=== PATIENT | female | born 1965 | race African-American/Black ===

== ENCOUNTER → 2023-03-05 | Day surgery (SDC) | payer MEDICARE ==
[~2023-03-05] MED LIST: Midazolam HCl 2 mg/2 ml Vial ONE; Ondansetron PF 4 MG/2 ML Vial ONE; Sodium Bicarbonate 2.5 MEQ/5 ML VIAL ONE; fentaNYL 50 mcg/mL 1 mL Vial ONE
[2023-03-05 10:11] VITALS: BP 148/100; TEMP 97.7
== END ==
LOC: CT 08:35
PROVIDERS: ATTEND Internal Medicine Hematology & Oncology
DX: D69.3 Immune thrombocytopenic purpura (principal); E11.9 Type 2 diabetes mellitus without complications; M06.9 Rheumatoid arthritis, unspecified; I10 Essential (primary) hypertension; Z88.2 Allergy status to sulfonamides
CPT/HCPCS: 20225; 77012; J3010; 88184; 88237; 88264; 88280; J2250; J2405

== ENCOUNTER 2023-03-17 09:06 | Day surgery (SDC) | payer MEDICARE ==
[2023-03-17] MEDS ORDERED: diphenhydrAMINE 25 MG CAP PO SCH (09:45)
[2023-03-17] MEDS ORDERED: Acetaminophen 500 MG TAB PO SCH (09:45)
[2023-03-17] MEDS ORDERED: diphenhydrAMINE 25 MG CAP ONE (10:04)
[2023-03-17] MEDS ORDERED: Acetaminophen 500 MG TAB ONE (10:04)
[2023-03-17 15:41] VITALS: BP 126/76; TEMP 98.1
== END 2023-03-17 16:00 | disposition home or self-care (01) ==
LOC: ONC/OP 09:06
PROVIDERS: ATTEND Internal Medicine Hematology & Oncology
DX: D69.3 Immune thrombocytopenic purpura (principal); Z88.2 Allergy status to sulfonamides
CPT/HCPCS: 36430; 86850; 86900; 86901; 86920; P9016

== ENCOUNTER 2023-04-01 09:06 | Day surgery (SDC) | payer MEDICARE ==
[2023-04-01] MEDS ORDERED: Acetaminophen 500 MG TAB PO SCH (09:15)
[2023-04-01] MEDS ORDERED: diphenhydrAMINE 25 MG CAP PO SCH (09:15)
[2023-04-01] MEDS ORDERED: Acetaminophen 500 MG TAB ONE (09:52)
[2023-04-01] MEDS ORDERED: diphenhydrAMINE 25 MG CAP ONE (09:52)
[2023-04-01 13:30] VITALS: BP 131/61; TEMP 97.5
== END 2023-04-01 15:34 | disposition home or self-care (01) ==
LOC: ONC/OP 09:06
PROVIDERS: ATTEND Internal Medicine Hematology & Oncology
DX: D64.9 Anemia, unspecified (principal); D69.3 Immune thrombocytopenic purpura; Z88.2 Allergy status to sulfonamides
CPT/HCPCS: 36430; 86850; 86900; 86901; 86920; P9016

== ENCOUNTER 2023-04-21 09:09 | Day surgery (SDC) | payer MEDICARE ==
[2023-04-21] MEDS ORDERED: Acetaminophen 500 MG TAB PO SCH (09:45)
[2023-04-21] MEDS ORDERED: diphenhydrAMINE 25 MG CAP PO SCH (09:45)
[2023-04-21] MEDS ORDERED: Acetaminophen 500 MG TAB ONE (10:19)
[2023-04-21] MEDS ORDERED: FLU VACC QS2023-24(6MOS UP)/PF 60 MCG/0.5 ML SYRINGE IM ONE (13:30)
[2023-04-21 15:31] VITALS: BP 132/72; TEMP 98.1
== END 2023-04-21 15:34 | disposition home or self-care (01) ==
LOC: ONC/OP 09:09
PROVIDERS: ATTEND Internal Medicine Hematology & Oncology
DX: D64.9 Anemia, unspecified (principal); D69.6 Thrombocytopenia, unspecified; Z88.2 Allergy status to sulfonamides
CPT/HCPCS: 36430; 86850; 86900; 86901; 86920; P9016

== ENCOUNTER 2023-05-03 07:48 | Outpatient (CLI) | payer MEDICARE | END 2023-05-03 07:49 | disposition home or self-care (01) | LOC: BICCT 07:48 | PROVIDERS: ATTEND Surgery | DX: D69.3 Immune thrombocytopenic purpura (principal); N28.89 Other specified disorders of kidney and ureter; N20.0 Calculus of kidney; K57.30 Diverticulosis of large intestine without perforation or abscess without bleeding; Z90.49 Acquired absence of other specified parts of digestive tract | CPT/HCPCS: 74177; 82565 ==

== ENCOUNTER 2023-05-19 09:05 | Day surgery (SDC) | payer MEDICARE ==
[2023-05-19] MEDS ORDERED: diphenhydrAMINE 25 MG CAP ONE (10:12)
[2023-05-19] MEDS ORDERED: Acetaminophen 500 MG TAB ONE (10:12)
[2023-05-19] MEDS ORDERED: Acetaminophen 500 MG TAB PO SCH (10:30)
[2023-05-19] MEDS ORDERED: diphenhydrAMINE 25 MG CAP PO SCH (10:30)
[2023-05-19 13:07] VITALS: TEMP 97.9
[2023-05-19 15:26] VITALS: BP 136/71
== END 2023-05-19 15:27 | disposition home or self-care (01) ==
LOC: ONC/OP 09:05
PROVIDERS: ATTEND Internal Medicine Hematology & Oncology
DX: D69.3 Immune thrombocytopenic purpura (principal); Z88.2 Allergy status to sulfonamides
CPT/HCPCS: 36430; 86850; 86900; 86901; 86920; P9016

== ENCOUNTER 2023-06-21 09:09 | Outpatient (CLI) | payer MEDICARE ==
[2023-06-21 11:58] LABS: Anion Gap 13 mmol/L (10-20); BUN (Urea Nitrogen) 21 mg/dL (9.8-20.1); Calc. Creatinine Clearance 0 mL/min (70-130); Carbon Dioxide 26 mmol/L (22-29); Chloride 106 mmol/L (98-107); Estimated GFR 60; Glucose 138 mg/dL (70-105); Potassium 3.7 mmol/L (3.5-5.1); Sodium 141 mmol/L (136-145)
[2023-06-21 12:05] LABS: #Eosinphils 0.2 10x3/uL (0.0-0.5); #Monocytes 0.8 10x3/uL (0.0-1.1); #Neutrophils 3.2 10x3/uL (1.5-8.4); %Basophils 0.7 % (0.0-2.0); %Eosinophils 2.7 % (0.0-6.0); %Lymphocytes 23.1 % (18.0-47.0); %Neutrophils 58.6 % (40.0-75.0); Hematocrit 28.2 % (34.9-44.5); Hemoglobin 8.4 g/dL (12.0-15.5); Mean Corpuscular HGB CONC 29.8 g/dL (32.0-36.0); Mean Corpuscular Hemoglobin 27.5 pg (27.0-33.0); Mean Corpuscular Volume 92.5 fl (81.6-98.3); Platelet Count 1 10x3/uL (150-450); RBC Distribution Width 14.6 % (11.5-14.5); Red Blood Cell (RBC) Count 3.05 10x6/uL (3.90-5.03); White Blood Cell (WBC) Count 5.5 10x3/uL (3.5-10.5)
== END 2023-06-21 09:10 | disposition home or self-care (01) ==
LOC: LABBT 09:09
PROVIDERS: ATTEND Surgery
DX: Z01.818 Encounter for other preprocedural examination (principal); D69.3 Immune thrombocytopenic purpura
CPT/HCPCS: 80048; 85025; 93005; 93010

== ENCOUNTER 2023-07-01 06:55 | Inpatient (IN) | payer MEDICARE ==
[2023-06-21 09:38] VITALS: BMI 34.9
[2023-07-01] MEDS ORDERED: Lidocaine 1% MPF 2 ML VIAL ONE (08:44)
[2023-07-01] MEDS ORDERED: Famotidine/PF 20 mg/2ml Vial ONE (08:46)
[2023-07-01] MEDS ORDERED: Ondansetron PF 4 MG/2 ML Vial ONE ×2 (08:46→13:13)
[2023-07-01] MEDS ORDERED: fentaNYL 50 mcg/mL 1 mL Vial ONE ×2 (10:19→14:41)
[2023-07-01] MEDS ORDERED: PROPOFOL 20 ML ONE (10:42)
[2023-07-01] MEDS ORDERED: Lidocaine 1% PF 5 ML VIAL ONE (10:42)
[2023-07-01] MEDS ORDERED: fentaNYL PF 100 MCG/2 ML SYRINGE ONE (10:42)
[2023-07-01] MEDS ORDERED: Rocuronium Bromide 10 MG/ML (10ML VIAL) ONE ×2 (10:42→12:39)
[2023-07-01] MEDS ORDERED: MINERAL OIL/WHITE PETROLATUM 3.5 GM TUBE ONE (10:44)
[2023-07-01] MEDS ORDERED: Lidocaine 2% 6 ML (Jelly) SYR ONE (10:44)
[2023-07-01] MEDS ORDERED: Midazolam HCl 2 mg/2 ml Vial ONE (10:51)
[2023-07-01] MEDS ORDERED: Bupivacaine 0.25% HCL 30 ML VIAL ONE (10:56)
[2023-07-01] MEDS ORDERED: EPINEPHrine 1 MG/ML VIAL ONE (10:56)
[2023-07-01] MEDS ORDERED: Sodium Chloride 0.9% 100 ML ONE (11:02)
[2023-07-01] MEDS ORDERED: CEFAZOLIN 2 GM VIAL ONE (11:02)
[2023-07-01] MEDS ORDERED: PHENYLEPHRINE-NS 100 MCG/ML 10 ML SYRINGE ONE (12:39)
[2023-07-01] MEDS ORDERED: Calcium Chloride 1 GM/10 ML Abboject SYRINGE ONE (13:27)
[2023-07-01] MEDS ORDERED: SUGAMMADEX SODIUM 200 MG/2 ML VIAL ONE (13:29)
[2023-07-01 13:36] LABS: #Eosinphils 0.1 thou/uL (0.0-0.7); #Monocytes 1.3 thou/uL (0.11-0.59); #Neutrophils 12.3 thou/uL (1.40-6.50); %Basophils 0.3 % (0.0-1.0); %Eosinophils 0.8 % (0.0-10.0); %Lymphocytes 12.8 % (21.0-51.0); %Monocytes 8.4 % (0.0-10.0); %Neutrophils 76.9 % (42.0-75.0); Hematocrit 22.5 % (36.0-47.0); Hemoglobin 6.7 g/dL (12.0-16.0); Mean Corpuscular HGB CONC 29.8 g/dL (32.0-36.0); Mean Corpuscular Hemoglobin 28.3 pg (27.0-31.0); Mean Corpuscular Volume 94.9 fl (78.0-98.0); Mean Platelet Volume 9.7 fL (7.4-10.4); RBC Distribution Width 15.3 % (11.5-14.5); Red Blood Cell (RBC) Count 2.37 mill/uL (4.20-5.40)
[2023-07-01] MEDS ORDERED: Labetalol HCl 100 MG/20 ML VIAL ONE (13:36)
[2023-07-01 13:39] LABS: Platelet Count 65 10x3/uL (130-400)
[2023-07-01] MEDS ORDERED: Promethazine HCl 25 MG/ML VIAL IM PRN ×2 (14:04→14:05)
[2023-07-01] MEDS ORDERED: Ondansetron HCl/PF 4 MG/2 ML Vial IVP PRN (14:04)
[2023-07-01] MEDS ORDERED: Glucagon 1 MG/ML KIT IM PRN ×2 (14:05)
[2023-07-01] MEDS ORDERED: Dextrose 5% in Water 1,000 ML IV PRN (14:05)
[2023-07-01] MEDS ORDERED: Insulin Regular 300 UNITS/3 ML VIAL SC PRN (14:05)
[2023-07-01] MEDS ORDERED: Ipratropium/Albuterol 3 ML NEB NEB PRN (14:05)
[2023-07-01] MEDS ORDERED: HYDROcodone/Acetaminophen 10/325 mg Tablet PO PRN (14:05)
[2023-07-01] MEDS ORDERED: hydrALAZINE 20 MG/ML VIAL SLOW IVP PRN (14:05)
[2023-07-01] MEDS ORDERED: Dextrose 50% Abboject 50 ML SYRINGE SLOW IVP PRN ×2 (14:05)
[2023-07-01] MEDS ORDERED: Ondansetron PF 4 MG/2 ML Vial IVP PRN (14:05)
[2023-07-01] MEDS: Morphine 4 MG/ML VIAL SLOW IVP PRN ×2 (16:33→19:43)
[2023-07-01] MEDS: Sodium Chloride 0.9% 1,000 ML IV SCH (16:35)
[2023-07-01] MEDS: HYDROcodone/Acetaminophen 10/325 mg Tablet PO PRN ×2 (17:30→21:17)
[2023-07-01] MEDS ORDERED: Famotidine 20 MG TAB PO SCH (21:00)
[2023-07-01] MEDS ORDERED: Famotidine/PF 20 mg/2ml Vial SLOW IVP SCH (21:00)
[2023-07-02] MEDS: HYDROcodone/Acetaminophen 10/325 mg Tablet PO PRN ×5 (03:37→22:23)
[2023-07-02] MEDS: Sodium Chloride 0.9% 1,000 ML IV SCH (05:32)
[2023-07-02] MEDS: Hydrochlorothiazide 25 MG TAB PO SCH (08:28)
[2023-07-02] MEDS: Lisinopril 20 MG TAB PO SCH (08:28)
[2023-07-02 08:29] LABS: Anion Gap 17 mmol/L (10-20); BUN (Urea Nitrogen) 23 mg/dL (9.8-20.1); Calc. Creatinine Clearance 79 mL/min (70-130); Calcium 8.5 mg/dL (7.8-10.44); Carbon Dioxide 16 mmol/L (22-29); Chloride 108 mmol/L (98-107); Estimated GFR 54; Glucose 174 mg/dL (70-105); Potassium 5.3 mmol/L (3.5-5.1); Sodium 136 mmol/L (136-145)
[2023-07-02 12:56] LABS: Hematocrit 25.5 % (36.0-47.0); Hemoglobin 7.7 g/dL (12.0-16.0); Manual Diff?? YES; Mean Corpuscular HGB CONC 30.2 g/dL (32.0-36.0); Mean Corpuscular Hemoglobin 28.5 pg (27.0-31.0); Mean Corpuscular Volume 94.4 fl (78.0-98.0); RBC Distribution Width 16.5 % (11.5-14.5)
[2023-07-02 12:59] LABS: Delete Auto Diff?? YES; Platelet Count 1 10x3/uL (130-400)
[2023-07-02 13:20] LABS: Anisocytosis SLIGHT = 6-15 cells HPF (0-5); Band 10 % (5-11); CellaVision Operator ID LAB.MJL; Helmet Cells SLIGHT = 2-5 cells HPF (0-1); Lymphocytes 5 % (21-51); Monocytes 7 % (0-10); Neutrophil 78 % (42-75); Nucleated RBC (Manual Ct) 2 % (0); Ovalocytes SLIGHT = 2-5 cells HPF (0-1); Platelet Adequacy Comment Significant decrease; Poikilocytosis SLIGHT = 6-15 cells HPF (0-5); Polychromasia MODERATE = 3-4 cells HPF (0-2); Schistocytes SLIGHT = 2-5 cells HPF (0-1); Tear Drops SLIGHT = 2-5 cells HPF (0-1); Total Cell Count 102
[2023-07-03 06:52] LABS: Hematocrit 25.4 % (36.0-47.0); Hemoglobin 7.5 g/dL (12.0-16.0); Manual Diff?? YES; Mean Corpuscular HGB CONC 29.5 g/dL (32.0-36.0); Mean Corpuscular Hemoglobin 28.1 pg (27.0-31.0); Mean Corpuscular Volume 95.1 fl (78.0-98.0); RBC Distribution Width 16.3 % (11.5-14.5); Red Blood Cell (RBC) Count 2.67 mill/uL (4.20-5.40); White Blood Cell (WBC) Count 25.4 10x3/uL (4.8-10.8)
[2023-07-03 06:56] LABS: Platelet Count 1 10x3/uL (130-400)
[2023-07-03 06:57] LABS: Delete Auto Diff?? YES
[2023-07-03 07:47] LABS: Anisocytosis SLIGHT = 6-15 cells HPF (0-5); Burr Cells MODERATE= 6-15 cells HPF (0-1); CellaVision Operator ID LAB.NR; Eosinophils 1 % (0-10); Hypochromia MODERATE=16-30 cells HPF (0-5); Lymphocytes 6 % (21-51); Macrocytosis SLIGHT = 6-15 cells HPF (0-5); Monocytes 7 % (0-10); Neutrophil 86 % (42-75); Nucleated RBC (Manual Ct) 1 % (0); Platelet Adequacy Comment Significant decrease; Polychromasia MODERATE = 3-4 cells HPF (0-2); Total Cell Count 100
[2023-07-03 07:55] VITALS: BP 101/57; TEMP 98.5
[2023-07-03] MEDS: Hydrochlorothiazide 25 MG TAB PO SCH (08:30)
[2023-07-03] MEDS: Lisinopril 20 MG TAB PO SCH (08:30)
[2023-07-03] MEDS: HYDROcodone/Acetaminophen 10/325 mg Tablet PO PRN (08:31)
== END 2023-07-03 11:09 | disposition home or self-care (01) | DRG 800 ==
LOC: SDC 06:55 → SURG A 14:05
PROVIDERS: ADMIT Surgery; ATTEND Surgery
PROC: 07BP4ZZ Excision of Spleen, Percutaneous Endoscopic Approach (ICD-10-PCS; principal; 2023-07-01)
PROC: 6A551Z2 Pheresis of Platelets, Multiple (ICD-10-PCS; 2023-07-01)
PROC: 30233N1 Transfusion of Nonautologous Red Blood Cells into Peripheral Vein, Percutaneous Approach (ICD-10-PCS; 2023-07-01)
PROC: 3E033XZ Introduction of Vasopressor into Peripheral Vein, Percutaneous Approach (ICD-10-PCS; 2023-07-01)
DX: D69.3 Immune thrombocytopenic purpura (principal); C64.9 Malignant neoplasm of unspecified kidney, except renal pelvis; I10 Essential (primary) hypertension; Z79.899 Other long term (current) drug therapy; Z90.49 Acquired absence of other specified parts of digestive tract; Z98.890 Other specified postprocedural states; Z98.51 Tubal ligation status; Z88.2 Allergy status to sulfonamides; M19.90 Unspecified osteoarthritis, unspecified site; E11.9 Type 2 diabetes mellitus without complications; Z96.659 Presence of unspecified artificial knee joint
CPT/HCPCS: 36415; 36416; 36430; 80048; 85025; 85060; 86850; 86900; 86901; 88305; A4314; A4649; C1776; C1889; J0171; J1642; J1815; J2250; J2270; J2405; J2704; J3010; J3490; J7050; P9016; P9035; S0020; S0028